=== PATIENT | female | born 1995 | race African-American/Black ===

== ENCOUNTER 2020-04-29 00:43 | Emergency (ER) | payer SELFPAY ==
[~2020-04-29] VITALS: Ht 170.2 cm; Wt 117.0 kg
[2020-04-29 00:55] VITALS: BP 121/86
[2020-04-29] MEDS ORDERED: IBUPROFEN 600 MG TABLET. PO ONE ×2 (01:00→01:15)
[2020-04-29] MEDS ORDERED: IBUP-1673 PO (01:04)
--- NOTE | 2020-04-29 01:04 | PHYS DOC ---
General Adult HPI: HPI: History obtained from patient. Patient is a right-handed 24-year-old female who presents with chief complaint of left elbow pain. States pain began 2 weeks ago. States that occurred after she lifted a heavy object at work. 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 She states the pain is been intermittent since then. States it is worse with movement. States tonight she woke up from sleep and noted her elbow somewhat locked up on her. States it was difficult to extend her elbow. She states that her fianc encouraged to report to the emergency department. States she does not a full range of motion. States the pain seems to be worse with supination of the left upper extremity. She denies any numbness or tingling. Denies weakness. 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 Denies redness or swelling. Denies any street IV drug use. Denies fevers. Has not tried any medication to help with this over the past 2 weeks. Denies any direct trauma or blows to the left elbow. Denies shoulder pain or wrist pain. No other complaints. Review of Systems: Review of Systems: Constitutional: Denies fever or chills Eyes: Denies change in visual acuity HENT: Denies nasal congestion or sore throat Respiratory: Denies cough or shortness of breath Cardiovascular: Denies chest pain or edema GI: Denies abdominal pain, nausea, vomiting, bloody stools or diarrhea : Denies dysuria Musculoskeletal: Positive for elbow pain Integument: Denies rash Neurologic: Denies headache, focal weakness or sensory changes Endocrine: Denies polyuria or polydipsia Lymphatic: Denies swollen glands Psychiatric: Denies depression or anxiety Physical Exam: PE: Constitutional: Well developed, well nourished, no acute distress, non-toxic appearance. [] HENT: Normocephalic, atraumatic, bilateral external ears normal, oropharynx moist, no oral exudates, nose normal. [] Eyes: PERRLA, EOMI, conjunctiva normal, no discharge. [] Neck: Normal range of motion, no tenderness, supple, no stridor. [] Cardiovascular:Heart rate regular rhythm, no murmur [] Lungs & Thorax: Bilateral breath sounds clear to auscultation [] Abdomen:, soft, no tenderness, no masses, no pulsatile masses. [] Skin: Warm, dry, no erythema, no rash. [] Back: No tenderness, no CVA tenderness. [] Extremities: Left shoulder and wrist without tenderness to palpation. Left elbow without bony tenderness to palpation. Reproducible pain with resistance to supination. Mild tenderness over the lateral epicondyle. +2-4 radial pulse on left. Forearm compartments soft. Cardinal hand movements intact. 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 Full range of motion of the left upper extremity without difficulty. No effusions, warmth, or erythema appreciated. Neurologic: Alert and oriented X 3, normal motor function, normal sensory function, no focal deficits noted. [] Psychologic: Affect normal, judgement normal, mood normal. [] EKG: EKG: [] Radiology/Procedures: Radiology/Procedures: [] Heart Score: Risk Factors: Risk Factors: DM, Current or recent (<one month) smoker, HTN, HLP, family history of CAD, obesity. Risk Scores: Score 0 - 3: 2.5% MACE over next 6 weeks - Discharge Home Score 4 - 6: 20.3% MACE over next 6 weeks - Admit for Clinical Observation Score 7 - 10: 72.7% MACE over next 6 weeks - Early Invasive Strategies Course & Med Decision Making: Course & Med Decision Making Pertinent Labs and Imaging studies reviewed. (See chart for details) [] Patient is a very pleasant 24-year-old female who presents with chief complaint of left elbow pain. Her signs symptoms are concerning for tendinitis versus epicondylitis. I did offer to obtain plain film imaging although I did have low suspicion for osseous abnormality. Patient is declining at this time. Overall given the atraumatic nature of her injury I do feel this is appropriate. Her symptoms are most likely soft tissue in nature. She was encouraged to supportive care measures at home. She was encouraged to use anti- inflammatories. Return precautions discussed and understood. She is agreeable and stable for discharge home. Marioon Disclaimer: Bell Disclaimer: This electronic medical record was generated, in whole or in part, using a voice recognition dictation system. Departure Departure: Impression: Primary Impression: Left elbow pain Disposition: 01 DC HOME SELF CARE/HOMELESS Condition: STABLE Referrals: PCP,NO (PCP) NADIA WHITESIDE MD Patient Instructions: Epicondylitis, Lateral (Tennis Elbow) with [facility]hab[facility], Epicondylitis, Medial (Golfer's Elbow) with [facility], Tendinitis Scripts Ibuprofen (IBUPROFEN) 200 Mg Tablet 600 MG PO QIDPRN PRN for PAIN, #15 TAB Prov: COSME JONES DO 04/29/20 COSME JONES DO Apr 29, 2020 01:04
== END 2020-04-29 01:20 | disposition home or self-care (01) ==
LOC: ER 00:43
DX: M25.522 Pain in left elbow (principal)
CPT/HCPCS: 99282